=== PATIENT | male | born 1950 | race Hispanic/Latino ===

== ENCOUNTER 2019-10-25 07:34 | Observation (INO) | payer MEDICARE ==
[2019-10-18 10:50] LABS: BASOPHILS % (AUTO) 0.7 % (0.0-5.0); EOSINOPHILS % (AUTO) 1.5 % (0.0-8.0); HEMATOCRIT 38.5 % (42-54); LYMPHOCYTES % (AUTO) 19.1 % (21.0-51.0); MEAN CORPUSCULAR HGB CONC 33.9 g/dL (32.0-36.0); MEAN CORPUSCULAR VOLUME 91.4 fL (79-99); MONOCYTES % (AUTO) 6.9 % (3.0-13.0); NEUTROPHILS % (AUTO) 71.8 % (40.0-77.0); PLATELET COUNT (AUTO) 318 K/uL (130-400); RED BLOOD CELL COUNT(AUTO) 4.21 MIL/uL (4.50-6.20); RED CELL DISTRIBUTION WIDTH 14.3 % (11.0-15.5); WHITE BLOOD COUNT (AUTO) 8.1 K/uL (4.8-10.8)
[2019-10-18 10:54] VITALS: BP 103/50
[2019-10-18 10:59] LABS: CREATININE 1.3 mg/dL (0.5-1.5); POTASSIUM 4.7 mmol/L (3.5-5.1)
[2019-10-18 11:05] LABS: INR 1.05 (0.85-1.15); PARTIAL THROMBOPLASTIN TIME 30.3 SEC (26.3-35.5)
[2019-10-22] MEDS: CEFAZOLIN SODIUM 1 GM VIAL IVP SCH (05:00)
[2019-10-23] MEDS: CEFAZOLIN SODIUM 1 GM VIAL IVP SCH (05:00)
[2019-10-25] VITALS (14 sets, daily range): BP systolic 85–125; BP diastolic 40–52
[~2019-10-25] VITALS: Ht 162.6 cm; Wt 56.6 kg
[~2019-10-25 07:34] MED LIST: ATOR20TA65 PO; BUME1TAB6 PO; CARV6.25 PO; CLOP75TA32 PO; DIGO125T71 PO; DOCU-116 PO; LEVO25TA54 PO; LINA5TAB PO; LISI2.5T2 PO; METF-446 PO; RANI150T7 PO; SPIR25TA6 PO; vitamin d3 PO
[2019-10-25] MEDS ORDERED: SODIUM CHLORIDE 0.9% 1000ML 1,000 ML IV ONE (07:49)
--- NOTE | 2019-10-25 08:48 | NUR ---
PROCEDURE PT TAKEN TO PROCEDURE VIA AUTO PORTER STAFF BHAKTI MEDINA
[2019-10-25] MEDS ORDERED: CEFAZOLIN SODIUM 1 GM VIAL ONE (08:49)
[2019-10-25] MEDS ORDERED: BUPIVACAINE/PF 0.25% 30ML VIAL IJ ONE (08:49)
[2019-10-25] MEDS ORDERED: MEPERIDINE-PF 25 MG/ML SYG ONE (08:49)
[2019-10-25] MEDS ORDERED: MIDAZOLAM HCL 1 MG/ML 2ML VIAL ONE (08:49)
[2019-10-25] MEDS ORDERED: LIDOCAINE HCL 1% MDV 50ML VIAL ONE (08:50)
[2019-10-25] MEDS ORDERED: IODIXANOL 320 MG/ML 100 ML VIAL ONE (09:56)
[2019-10-25] MEDS ORDERED: ACETAMINOPHEN-CODEINE 300/30MG TAB PO PRN (11:00)
--- NOTE | 2019-10-25 11:15 | NUR ---
PROCEDURE RECEIVED PT FROM SOLAR INSTALLER TECHNICIAN STAFF BHAKTI MEDINA. PT AAOX3. NO SLING IN PLACE TO LEFT ARM DUE TO ARM BEING CONTRACTED FROM STROKE. SITE TO LEFT UPPER CHEST SOFT TO TOUCH. NO BLEEDING, OOZING NOTED TO SITE.
--- NOTE | 2019-10-25 11:30 | NUR ---
SITE CHECK SITE TO LEFT UPPER CHEST SOFT TO TOUCH. NO BLEEDING, OOZING NOTED TO SITE.
--- NOTE | 2019-10-25 11:36 | NUR ---
CONSULT DR. ESPINOSA MADE AWARE OF PTS ADMISSION.
--- NOTE | 2019-10-25 11:45 | NUR ---
SITE CHECK SITE TO LEFT UPPER CHEST SOFT TO TOUCH. NO BLEEDING, OOZING NOTED TO SITE.
--- NOTE | 2019-10-25 12:00 | NUR ---
MEDICATIONS INFORMED LINDA SRIVASTAVA OF PTS BP'S IN 80'S. ORDERS RECEIVED TO CONTINUE TO MONITOR THE PT LONG HE ASYMPTOMATIC AND HOLD THIS EVENINGS CARVEDILOL AND BUMETANIDE.
--- NOTE | 2019-10-25 12:00 | NUR ---
SITE CHECK SITE TO LEFT UPPER CHEST SOFT TO TOUCH. NO BLEEDING, OOZING NOTED TO SITE.
--- NOTE | 2019-10-25 12:15 | NUR ---
SITE CHECK SITE TO LEFT UPPER CHEST SOFT TO TOUCH. NO BLEEDING, OOZING NOTED TO SITE.
--- NOTE | 2019-10-25 12:45 | NUR ---
site check SITE TO LEFT UPPER CHEST SOFT TO TOUCH. NO BLEEDING, OOZING NOTED TO SITE.
--- NOTE | 2019-10-25 14:15 | NUR ---
site check SITE TO LEFT UPPER CHEST SOFT TO TOUCH. NO BLEEDING, OOZING NOTED TO SITE.
--- NOTE | 2019-10-25 14:45 | NUR ---
Report received from BHAKTI Cook. Pt sleeping peacefully s any signs of distress. Dressing to left chest remains clean, dry and intact.
--- NOTE | 2019-10-25 17:25 | NUR ---
Pt to room 232. Report given to BHAKTI Ernst via telephone prior to brining pt up and care rendered over at bedside. Dressing to left chest remains dry, clean and intact. Pt denies any pain, nausea or dizziness. Dinner tray ordered just prior to pt's departure from day pt and was ready upon pt's arrival to room 232. Daughter called and notified that pt had been moved to room 232. Daughter states she will be available to pick her dad up tomorrow.
--- NOTE | 2019-10-25 17:30 | NUR ---
TRANSFER FROM DAY PATIENT RECEIVED VIA [facility], PT IS AMBULATORY, GAIT SLOW AND UNSTEADY WITH ASSIST, PT DOES HAVE LEFT ARM CONTRACTION THAT PT STATES IS DUE TO HX OF CVA BUT DOES HAVE WEAKNESS TO LLE. RT UPPER AND LOWER EXTREMITY STRONG. LEFT SHOULDER DRESSING IN PLACE, SITE DRY, INTACT AND SECURED WITH ARM SLING. PT RESTING COMFORTABLY, CALL LIGHT WITHIN REACH.
--- NOTE | 2019-10-25 20:00 | NUR ---
PT S/P AICD. STATES NO PAIN. LEFT UPPER CHEST SITE, NO DRAINAGE NOTED. DRESSING IN PLACE.PT HAS CVA DEFICITS TO LEFT ARM. PT HAS NO CONCERNS AT THIS TIME.
[2019-10-25] MEDS: BUMETANIDE 1 MG TAB PO SCH (20:32)
[2019-10-25] MEDS: CARVEDILOL 6.25 MG TABLET PO SCH (20:32)
[2019-10-25] MEDS: METFORMIN HCL 500 MG TABLET PO SCH (20:33)
[2019-10-25] MEDS: DOCUSATE SODIUM 100 MG CAP PO SCH (20:33)
[2019-10-25] MEDS ORDERED: ATORVASTATIN CALCIUM 20 MG TABLET PO SCH (21:00)
[2019-10-25] MEDS ORDERED: FAMOTIDINE 20MG TAB 20 MG TAB PO SCH (21:00)
--- NOTE | 2019-10-25 22:00 | NUR ---
PT'S DAUGHTER OVIDIO CALLED, WANTED UPDATE ON PT.STATES WILL BE HERE TOMORROW TO RESIDENTIAL PROGRAM MANAGER PT ONCE NOTIFIED ABOUT DISCHARGE.
[2019-10-26 00:03] VITALS: BP 96/55
[2019-10-26 04:04] VITALS: BP 104/54
[2019-10-26 04:48] LABS: HEMATOCRIT 34.8 % (42-54); MEAN CORPUSCULAR HEMOGLOBIN 30.2 pg (27.0-33.0); MEAN CORPUSCULAR HGB CONC 34.5 g/dL (32.0-36.0); MEAN CORPUSCULAR VOLUME 87.7 fL (79-99); PLATELET COUNT (AUTO) 256 K/uL (130-400); RED BLOOD CELL COUNT(AUTO) 3.97 MIL/uL (4.50-6.20); RED CELL DISTRIBUTION WIDTH 12.9 % (11.0-15.5); WHITE BLOOD COUNT (AUTO) 8.2 K/uL (4.8-10.8)
[2019-10-26 05:00] LABS: EOSINOPHILS % (MANUAL) 3 % (1-6); LYMPHOCYTES % (MANUAL) 15 % (22-44); MAN.DIFF COMMENT-IMPRESSION MANUAL DIFFERENTIAL; MONOCYTES % (MANUAL) 5 % (2-9); REACTIVE LYMPHOCYTES 1 % (0-0); SEGMENTED NEUTROPHILS % 76 % (40-70)
[2019-10-26 05:01] LABS: CREATININE 0.9 mg/dL (0.5-1.5); POTASSIUM 3.8 mmol/L (3.5-5.1)
[2019-10-26] MEDS: INSULIN HUMULIN R 100 UNIT/ML 3ML SQ SCH ×2 (06:28→11:30)
[2019-10-26] MEDS ORDERED: LEVOTHYROXINE 25 MCG TABLET PO SCH (06:30)
[2019-10-26 07:38] VITALS: BP 123/72
[2019-10-26] MEDS ORDERED: CLOPIDOGREL BISULFATE 75 MG TAB PO SCH (09:00)
[2019-10-26] MEDS ORDERED: SPIRONOLACTONE 25 MG TAB PO SCH (09:00)
[2019-10-26] MEDS ORDERED: LISINOPRIL 2.5 MG TABLET PO SCH (09:00)
[2019-10-26] MEDS ORDERED: DIGOXIN 125 MCG TABLET PO SCH (09:00)
[2019-10-26] MEDS ORDERED: LINAGLIPTIN 5 MG TABLET PO SCH (09:00)
[2019-10-26] MEDS: DOCUSATE SODIUM 100 MG CAP PO SCH (09:44)
[2019-10-26] MEDS: BUMETANIDE 1 MG TAB PO SCH (09:44)
[2019-10-26] MEDS: METFORMIN HCL 500 MG TABLET PO SCH (09:45)
[2019-10-26] MEDS: CARVEDILOL 6.25 MG TABLET PO SCH (09:45)
[2019-10-26 11:35] VITALS: BP 102/51
[2019-10-26 16:21] VITALS: BP 121/63
== END 2019-10-26 15:45 | disposition home or self-care (01) ==
LOC: DAH 07:34 → DAHIP 07:35 → 2AH 17:37
PROVIDERS: ADMIT Internal Medicine; ATTEND Internal Medicine
DX: I48.0 Paroxysmal atrial fibrillation (principal); I11.0 Hypertensive heart disease with heart failure; I50.42 Chronic combined systolic (congestive) and diastolic (congestive) heart failure; I25.10 Atherosclerotic heart disease of native coronary artery without angina pectoris; E78.5 Hyperlipidemia, unspecified; E11.9 Type 2 diabetes mellitus without complications; E03.9 Hypothyroidism, unspecified; Z72.0 Tobacco use; Z95.810 Presence of automatic (implantable) cardiac defibrillator; I25.5 Ischemic cardiomyopathy; Z95.1 Presence of aortocoronary bypass graft; Z86.73 Personal history of transient ischemic attack (TIA), and cerebral infarction without residual deficits; Z79.01 Long term (current) use of anticoagulants; Z79.84 Long term (current) use of oral hypoglycemic drugs; Z79.899 Other long term (current) drug therapy
CPT/HCPCS: 33249; 36415; 71045; 80048; 82948; 85025; 85610; 85730; 99156; 99157; A4606; C1722; C1895; G0378; J0690; J2175; J2250; J3490; J7030; Q9967

== ENCOUNTER 2021-05-27 07:06 | Day surgery (SDC) | payer MEDICARE ==
[2021-05-23 09:39] VITALS: BP 102/57
[2021-05-23 16:29] LABS: BASOPHILS % (AUTO) 0.7 % (0.0-5.0); EOSINOPHILS % (AUTO) 1.1 % (0.0-8.0); HEMATOCRIT 34.7 % (42-54); LYMPHOCYTES % (AUTO) 20.6 % (21.0-51.0); MEAN CORPUSCULAR HEMOGLOBIN 29.2 pg (27.0-33.0); MEAN CORPUSCULAR HGB CONC 33.1 g/dL (32.0-36.0); MEAN CORPUSCULAR VOLUME 88.1 fL (79-99); MONOCYTES % (AUTO) 7.9 % (3.0-13.0); NEUTROPHILS % (AUTO) 69.3 % (40.0-77.0); PLATELET COUNT (AUTO) 279 K/uL (130-400); RED BLOOD CELL COUNT(AUTO) 3.94 MIL/uL (4.50-6.20); RED CELL DISTRIBUTION WIDTH 13.9 % (11.0-15.5); WHITE BLOOD COUNT (AUTO) 7.3 K/uL (4.8-10.8)
[2021-05-23 16:42] LABS: INR 1.09 (0.85-1.15); PROTHROMBIN TIME 11.8 SEC (9.6-11.6)
[2021-05-23 16:43] LABS: PARTIAL THROMBOPLASTIN TIME 30.8 SEC (26.3-35.5)
[2021-05-23 16:48] LABS: CREATININE 1.6 mg/dL (0.5-1.5); POTASSIUM 5.6 mmol/L (3.5-5.1)
[2021-05-23 16:52] LABS: APPEARANCE,URINE Clear (CLEAR); BILIRUBIN,URINE Negative (NEGATIVE); COLOR,URINE Yellow (YELLOW); GLUCOSE, URINE (UA) Negative (NEGATIVE); KETONES,URINE Negative (NEGATIVE); LEUKOCYTE ESTERASE ,URINE Moderate (NEGATIVE); NITRATE,URINE Negative (NEGATIVE); OCCULT BLOOD,URINE Negative (NEGATIVE); PH,URINE 6.5 (5.0-8.0); PROTEIN,URINE Negative (NEGATIVE); UROBILINOGEN,URINE 0.2 mg/dL (0.2-1.0)
[2021-05-23 17:10] LABS: BACTERIA,URINE Few /HPF (None Seen); RBC,URINE None Seen /HPF (0-1); SQUAMOUS EPITHELIAL CELL,UR None Seen /HPF (0-2)
[2021-05-24 11:10] VITALS: BP 102/57
[2021-05-27] VITALS (9 sets, daily range): BP systolic 104–130; BP diastolic 53–78
[~2021-05-27] VITALS: Ht 167.6 cm; Wt 59.9 kg
[~2021-05-27 07:06] MED LIST changes: +0.9% NACL 500ML IV.SOLN 500 ML IV SCH; +AMIO200T6 PO; +APIX2.5T PO; -BUME1TAB6 PO; -CLOP75TA32 PO; -DIGO125T71 PO; +FURO40TA5 PO; -RANI150T7 PO
[2021-05-27] MEDS ORDERED: 0.9%NACL 1000ML 1,000 ML IV ONE (08:58)
[2021-05-27] MEDS ORDERED: IOHEXOL-350 75 ML VIAL IV ONE (09:01)
[2021-05-27] MEDS ORDERED: LIDOCAINE HCL 400MG/20ML VIAL ONE ×2 (09:01→10:31)
[2021-05-27] MEDS ORDERED: MIDAZOLAM HCL 1 MG/ML 2ML VIAL ONE (09:01)
[2021-05-27] MEDS ORDERED: FENTANYL CITRATE PF 50 MCG/1 ML 2ML VIAL ONE (09:01)
[2021-05-27] MEDS ORDERED: ASPIRIN 325 MG TABLET PO SCH (13:30)
== END 2021-05-27 16:40 | disposition home or self-care (01) ==
LOC: DAH 07:06
PROVIDERS: ATTEND Internal Medicine Cardiovascular Disease
DX: I50.43 Acute on chronic combined systolic (congestive) and diastolic (congestive) heart failure (principal); I11.0 Hypertensive heart disease with heart failure; I47.1 Supraventricular tachycardia; I25.2 Old myocardial infarction; I47.2 Ventricular tachycardia; I42.0 Dilated cardiomyopathy; E78.5 Hyperlipidemia, unspecified; I48.0 Paroxysmal atrial fibrillation; E11.9 Type 2 diabetes mellitus without complications; E03.9 Hypothyroidism, unspecified; I51.3 Intracardiac thrombosis, not elsewhere classified; Z79.01 Long term (current) use of anticoagulants; Z79.899 Other long term (current) drug therapy; Z79.84 Long term (current) use of oral hypoglycemic drugs; Z79.82 Long term (current) use of aspirin; Z86.73 Personal history of transient ischemic attack (TIA), and cerebral infarction without residual deficits
CPT/HCPCS: 33289; 36415 ×2; 71045; 80048; 81001; 82948 ×2; 84132; 85025; 85610; 85730; 87077; 87088; 87186; 93005; A4215; A4216; A4221; A4222; A4223 ×3; A4606; A4663; C1760; C1769 ×3; C1894 ×4; C2624; J1644 ×2; J3010; J3490 ×2; J7030; Q9965; Q9967; 99156; 99157; J2250